=== PATIENT | male | born 1980 | race Caucasian/White ===

== ENCOUNTER 2016-03-17 11:36 | Emergency (ER) | payer SELFPAY ==
[~2016-03-17] VITALS: Ht 182.9 cm; Wt 74.0 kg
[~2016-03-17 11:36] MED LIST: Z.0.NO CURRENT MEDS
[2016-03-17 11:43] VITALS: BP 133/98; PULSE 89; RESP 17; TEMP 98.4; O2SAT 98
[2016-03-17] MEDS ORDERED: CLINDAMYCIN INJ 900 MG in SODIUM CHLORIDE 0.9% INJ 100 ML IV ONE (12:00)
[2016-03-17] MEDS ORDERED: KETOROLAC TROMETHAMINE 30 MG/ML (IVP) VIAL IV PUSH ONE (12:00)
--- NOTE | 2016-03-17 12:00 | PD ---
HPI Chief Complaint: Oral / Dental Pain or Problem Time Seen by Provider: 11:55 Travel History International Travel<30 days: No Contact w/Intl Traveler<30days: No Traveled to known affect area: No History of Present Illness HPI Patient is a 35-year-old male presenting to him or to come for evaluation of dental pain. Patient states the pain is in his right upper front teeth. He states the pain started 2 days ago and has gotten progressively worse. Patient states it is painful to open his mouth. He denies any fevers or chills. He states the pain is a 10 out of 10. He reports his right cheek is swollen and under his right eye is also swollen and red. These are new symptoms since the onset of the dental pain. [facility] Past Medical History Medical History: Denies Significant Hx Tetanus Vaccination: > 5 Years Influenza Vaccination: No Past Surgical History Abdominal Surgery: Yes (hernia) Tonsillectomy: Yes Social History Alcohol Use: No Tobacco Use: Yes Substance Use: No Allergies-Medications (Allergen,Severity, Reaction): Coded Allergies: No Known Allergies (Verified , 03/17/16) Reported Meds & Prescriptions Reported Meds & Active Scripts Active No Active Prescriptions or Reported Medications Review of Systems Except as stated in HPI: all other systems reviewed are Neg HENT: Positive: Dental Difficulties Musculoskeletal: Positive: Pain (mouth, cheek) Physical Exam Narrative GENERAL: Well-nourished, well-developed patient. SKIN: Warm and dry. Edema noted to right cheek, erythema and swelling under right eye. Tender to palpation. HEAD: Normocephalic. MOUTH: Mucous membranes moist, no lesions, tongue and gums appear normal. Significant dental caries throughout mouth, teeth are broken at the gumline a lot. Chronic-appearing dental caries noted. EYES: No scleral icterus. No injection or drainage. NECK: Supple, trachea midline. No JVD or lymphadenopathy. CARDIOVASCULAR: Regular rate and rhythm without murmurs, gallops, or rubs. RESPIRATORY: Breath sounds equal bilaterally. No accessory muscle use. GASTROINTESTINAL: Abdomen soft, non-tender, nondistended. MUSCULOSKELETAL: No cyanosis, or edema. BACK: Nontender without obvious deformity. No CVA tenderness. Data Data Last Documented VS Vital Signs Date Time Temp Pulse Resp B/P Pulse Ox O2 Delivery O2 Flow Rate FiO2 03/17/16 11:43 98.4 89 17 133/[address] Facial Bones W Iv Contrast (03/17/16 ) Complete Blood Count With Diff (03/17/16 11:49) Basic Metabolic Panel (Bmp) (03/17/16 11:49) Iv Access Insert/Monitor (03/17/16 11:49) Clindamycin Inj (Cleocin Inj) (03/17/16 12:00) Ketorolac Inj (Toradol Inj) (03/17/16 12:00) Iohexol 350 Inj (Omnipaque 350 Inj) (03/17/16 13:12) Labs Laboratory Tests Test 03/17/16 12:00 White Blood Count 11.5 TH/MM3 Red Blood Count 4.98 MIL/MM3 Hemoglobin 15.1 GM/DL Hematocrit 44.0 % Mean Corpuscular Volume 88.4 FL Mean Corpuscular Hemoglobin 30.4 PG Mean Corpuscular Hemoglobin 34.4 % Concent Red Cell Distribution Width 12.7 % Platelet Count 193 TH/MM3 Mean Platelet Volume 9.8 FL Neutrophils (%) (Auto) 69.8 % Lymphocytes (%) (Auto) 18.4 % Monocytes (%) (Auto) 4.1 % Eosinophils (%) (Auto) 7.2 % Basophils (%) (Auto) 0.5 % Neutrophils # (Auto) 8.0 TH/MM3 Lymphocytes # (Auto) 2.1 TH/MM3 Monocytes # (Auto) 0.5 TH/MM3 Eosinophils # (Auto) 0.8 TH/MM3 Basophils # (Auto) 0.1 TH/MM3 CBC Comment DIFF FINAL Differential Comment Sodium Level 144 MEQ/L Potassium Level 3.9 MEQ/L Chloride Level 109 MEQ/L Carbon Dioxide Level 29.6 MEQ/L Anion Gap 5 MEQ/L Blood Urea Nitrogen 6 MG/DL Creatinine 0.93 MG/DL Estimat Glomerular Filtration 92 ML/MIN Rate Random Glucose 91 MG/DL Calcium Level 8.4 MG/DL MDM Medical Decision Making Medical Screen Exam Complete: Yes Emergency Medical Condition: Yes Interpretation(s) Laboratory Tests Test 03/17/16 12:00 White Blood Count 11.5 TH/MM3 Red Blood Count 4.98 MIL/MM3 Hemoglobin 15.1 GM/DL Hematocrit 44.0 % Mean Corpuscular Volume 88.4 FL Mean Corpuscular Hemoglobin 30.4 PG Mean Corpuscular Hemoglobin 34.4 % Concent Red Cell Distribution Width 12.7 % Platelet Count 193 TH/MM3 Mean Platelet Volume 9.8 FL Neutrophils (%) (Auto) 69.8 % Lymphocytes (%) (Auto) 18.4 % Monocytes (%) (Auto) 4.1 % Eosinophils (%) (Auto) 7.2 % Basophils (%) (Auto) 0.5 % Neutrophils # (Auto) 8.0 TH/MM3 Lymphocytes # (Auto) 2.1 TH/MM3 Monocytes # (Auto) 0.5 TH/MM3 Eosinophils # (Auto) 0.8 TH/MM3 Basophils # (Auto) 0.1 TH/MM3 CBC Comment DIFF FINAL Differential Comment Sodium Level 144 MEQ/L Potassium Level 3.9 MEQ/L Chloride Level 109 MEQ/L Carbon Dioxide Level 29.6 MEQ/L Anion Gap 5 MEQ/L Blood Urea Nitrogen 6 MG/DL Creatinine 0.93 MG/DL Estimat Glomerular Filtration 92 ML/MIN Rate Random Glucose 91 MG/DL Calcium Level 8.4 MG/DL Last Impressions Maxillofacial CT 03/17/16 0000 Signed Impressions: Service Date/Time: Thursday, March 17, 2016 13:02 - CONCLUSION: 1. 7 mm cystic lesion adjacent to the root of the right lateral upper incisor consistent with probable periapical cyst. 2. Mucous retention cyst within the right sphenoid sinus. 3. Mild nasal septal deviation to the right superiorly and to the left inferiorly. Matt Reyes MD Vital Signs Date Time Temp Pulse Resp B/P Pulse Ox O2 Delivery O2 Flow Rate FiO2 03/17/16 11:43 98.4 89 17 133/98 98 Differential Diagnosis Preseptal cellulitis versus facial abscess versus dental infection versus other Narrative Course Patient is a 35-year-old male presenting to emergency Department with 2 days of increasing dental pain, swelling to his right cheek and under his right eye. Patient denies any IV drug use. Labs and imaging ordered and pending, IV antibiotics and Toradol ordered. IV access established. CBC with a mildly elevated white count of 11.5, chemistry is unremarkable. CT shows a periapical cyst likely abscess above the right upper incisor is consistent with where the pain is. Patient be given oral clindamycin as well as a short course of oral pain medication. He was given a list of local dental clinics in the area. He was advised to follow-up with a dentist for further evaluation and management. Patient was advised to return to emergency room for any new or worsening symptoms or if this symptoms do not improve within 24-48 hours of starting the antibiotics. He verbalized understanding of these instructions. Patient stable for discharge. Physician Communication Physician Communication Dr. Schulte Diagnosis Primary Impression: Dental abscess Referrals: Dentist Patient Instructions: Dental Abscess (ED), General Instructions Additional Instructions: Follow-up with your primary doctor Follow-up with a dentist, a list has been provided to you Return to emergency department for any new or worsening symptoms Take medications as directed Med/Other Pt SpecificInfo: Prescription(s) given Scripts Ibuprofen 800 Mg [id number] Mg PO Q6HR PRN (PAIN) #40 TAB Ref 0 Prov:Nicole De La Rosa 03/17/16 Clindamycin 150 Mg [id number] Mg PO Q8HR 10 Days Ref 0 Prov:Nicole De La Rosa 03/17/16 Tramadol 50 Mg Tab50 Mg PO Q4H PRN (PAIN) #12 TAB Ref 0 Prov:Amanda Schulte MD 03/17/16 Disposition: 01 DISCHARGE HOME Condition: Stable Nicole De La Rosa Mar 17, 2016 12:00
[2016-03-17 12:06] LABS: BASOPHIL # 0.1 TH/MM3 (0-0.2); BASOPHIL % 0.5 % (0.0-2.0); EOSINOPHIL # 0.8 TH/MM3 (0-0.4); EOSINOPHIL % 7.2 % (0.0-4.0); HEMO FLAGS DIFF FINAL; LYMPH % 18.4 % (9.0-44.0); LYMPHOCYTE # 2.1 TH/MM3 (1.0-4.8); MEAN CELL VOLUME 88.4 FL (80.0-100.0); MEAN CORPUSCULAR HEMOGLOBIN 30.4 PG (27.0-34.0); MEAN CORPUSCULAR HGB CONC 34.4 % (32.0-36.0); MONO % 4.1 % (0.0-8.0); NEUT % 69.8 % (16.0-70.0); PLATELET COUNT 193 TH/MM3 (150-450); RED BLOOD COUNT 4.98 MIL/MM3 (4.50-5.90); RED CELL DISTRIBUTION WIDTH 12.7 % (11.6-17.2); WHITE BLOOD COUNT 11.5 TH/MM3 (4.0-11.0)
[2016-03-17 12:28] LABS: POTASSIUM 3.9 MEQ/L (3.5-5.1)
[2016-03-17 12:32] LABS: BICARBONATE 29.6 MEQ/L (21.0-32.0)
[2016-03-17] MEDS ORDERED: IOHEXOL 350 MG/ML 10 ML VIAL (for RAD DIAG) IV ONE (13:12)
--- NOTE | 2016-03-17 13:32 | RADHPO ---
EXAM DATE/TIME: 03/17/2016 13:02 [facility] COMPARISON: No previous studies available for comparison. INDICATIONS : Right dental pain. Evaluate for abscess. IV CONTRAST: 75 cc Omnipaque 350 (iohexol) IV RADIATION DOSE: 30.17 CTDIvol (mGy) MEDICAL HISTORY : None SURGICAL HISTORY : Tonsillectomy. ENCOUNTER: Initial ACUITY: 3 days PAIN SCALE: 3/10 LOCATION: Right facial TECHNIQUE: Volumetric scanning of the facial bones was performed. Using automated exposure control and adjustme nt of the mA and/or kV according to patient size, radiation dose was kept as low as reasonably achiev able to obtain optimal diagnostic quality images. FINDINGS: ORBITS: The orbital and infraorbital osseous structures are intact. The retroconal structures have a normal configuration. No radiopaque foreign bodies are seen. NASAL BONE: The nasal bone and maxillary spine are intact ZYGOMATIC ARCHES: Symmetric without evidence of fracture. SINUSES: The maxillary, ethmoid and frontal sinuses are intact. No air-fluid levels seen. There is a mucous r etention cyst within the right sphenoid sinus. NASAL CAVITY: There is mild deviation of the septum to the right superiorly and to the left inferiorly. The lacrima l ducts are intact. SOFT TISSUES: No radiopaque foreign bodies seen. No soft-tissue swelling is seen. INTRACRANIAL: No intracranial air seen. CRIBIFORM PLATE: Grossly intact. DENTAL: There is a 7 mm cystic lesion adjacent to the root of the right lateral upper incisor consistent with possible periapical cyst. CONCLUSION: 1. 7 mm cystic lesion adjacent to the root of the right lateral upper incisor consistent with probabl e periapical cyst. 2. Mucous retention cyst within the right sphenoid sinus. 3. Mild nasal septal deviation to the right superiorly and to the left inferiorly. Matt Reyes MD on March 17, 2016 at 13:16 Board Certified Radiologist. This report was verified electronically.
[2016-03-17] MEDS ORDERED: TRAM50TA PO (13:52)
[2016-03-17] MEDS ORDERED: IBUP800T23 PO (13:55)
[2016-03-17] MEDS ORDERED: CLIN1CAP5 PO (13:55)
[2016-03-17 14:05] VITALS: BP 130/96
== END 2016-03-17 14:06 | disposition home or self-care (01) ==
LOC: PHEFT 11:36
DX: K04.7 Periapical abscess without sinus (principal); K02.9 Dental caries, unspecified; Z72.0 Tobacco use; J34.2 Deviated nasal septum
CPT/HCPCS: 70487; 80048; 85025; 96365; 96375; 99284; J1885; Q9967